=== PATIENT | male | born 1980 | race Caucasian/White ===

== ENCOUNTER 2021-02-19 15:34 | Inpatient (IN) | payer MEDICAID, OTHER ==
[~2021-02-19] VITALS: Ht 180.3 cm; Wt 121.1 kg
[2021-02-19 16:53] LABS: Basophils # (auto) 0.1 10 ^3/uL (0-0.2); Basophils % (auto) 0.7 % (0.0-2.0); Eosinophils # (auto) 0.2 10 ^3/uL (0-0.8); Eosinophils % (auto) 1.7 % (0.0-7.0); Hematocrit 35.7 % (41.0-53.0); Hemoglobin 12.1 g/dL (13.5-17.5); Lymphocytes # (auto) 1.2 10 ^3/uL (0.4-5.4); Lymphocytes % (auto) 9.3 % (10.0-50.0); Mean Corpuscular Hemoglobin 30.9 pg (28.0-32.0); Mean Corpuscular Hgb Conc. 33.7 g/dL (32.0-36.0); Mean Corpuscular Volume 91.6 fL (80.0-100.0); Monocytes # (auto) 0.8 10 ^3/uL (0-1.3); Monocytes % (auto) 6.4 % (0.0-12.0); Neutrophils # (auto) 10.8 10 ^3/uL (1.6-8.6); Neutrophils % (auto) 81.9 % (37.0-80.0); Red Cell Distribution Width 14.2 % (11.8-14.3); White Blood Cell 13.2 10^3/uL (4.4-10.8)
[2021-02-19] MEDS ORDERED: CLINDAMYCIN 600MG IV 50 ML IV ONE (17:15)
[2021-02-19] MEDS ORDERED: SODIUM CHLORIDE 0.9% 1,000 ML IV ONE ×2 (17:15)
[2021-02-19] MEDS ORDERED: cefTRIAXone 1GM/50ML D5W 50 ML IV ONE (17:15)
[2021-02-19 17:23] LABS: Urine Bacteria NONE SEEN /hpf (None Seen); Urine Blood Negative /uL (Negative); Urine Hyaline Cast FEW /lpf (0 - 2); Urine Specific Gravity 1.015 (1.001-1.035); Urine WBC 2 /hpf (0 - 3)
[2021-02-19 17:25] LABS: BUN/Creatinine Ratio 18.5; Calcium 8.3 mg/dL (8.5-10.1); Potassium 4.5 mmol/L (3.5-5.1)
[2021-02-19 17:38] LABS: Bilirubin, Total 0.5 mg/dL (0.2-1.0); Total Protein 7.4 g/dL (6.4-8.2)
[2021-02-19 17:45] LABS: Alcohol, Urine < 3.0 mg/dL (0-10); Amphetamine Screen, Urine NEGATIVE (NEGATIVE); Barbiturate Scree,Urine NEGATIVE (NEGATIVE); Benzodiazephine Screen, Urine NEGATIVE (NEGATIVE); Cannabinoid Screen, Urine NEGATIVE (NEGATIVE); Cocaine Screen, Urine NEGATIVE (NEGATIVE); Opiate Scree,Urine NEGATIVE (NEGATIVE); Phencyclidine Screen, Urine NEGATIVE (NEGATIVE)
[2021-02-19] MEDS ORDERED: HYDROcodone-ACET 10/325MG TAB PO ONE (18:45)
[2021-02-19] MEDS ORDERED: MORPHINE SULFATE INJECTION 2 MG/ML SYRG IV PRN (23:30)
[2021-02-19] MEDS ORDERED: DOCUSATE SOD 100 MG CAP PO PRN (23:30)
[2021-02-19] MEDS ORDERED: NITROGLYCERIN 0.4 MG SL TAB SL PRN (23:30)
[2021-02-19] MEDS ORDERED: VANCOMYCIN PER PHARMACY 0 MG IV SCH (23:30)
[2021-02-19] MEDS ORDERED: DEXTROSE (50%) 50ML SYRG IV PRN (23:30)
[2021-02-19] MEDS ORDERED: ACETAMINOPHEN 325 MG TAB PO PRN (23:30)
[2021-02-19] MEDS ORDERED: VANCOMYCIN 1GM/250ML 250 ML IV ONE (23:45)
[2021-02-20] MEDS: MORPHINE SULFATE 4 MG/ML SYR/VIAL IV PRN ×4 (00:08→17:59)
[2021-02-20 01:00] VITALS: BP 150/81
[2021-02-20] MEDS ORDERED: NIFE1TAB30 PO (02:16)
[2021-02-20] MEDS ORDERED: PROP40TA59 PO (02:16)
[2021-02-20] MEDS ORDERED: SIMV-8 PO (02:16)
[2021-02-20 04:58] VITALS: BP 150/81
[2021-02-20] MEDS: SODIUM CHLOR 0.9% PF (SALINE LOCK) 10ML VIAL/SYR IV SCH ×3 (06:27→22:18)
[2021-02-20 06:41] LABS: Basophils # (auto) 0.1 10 ^3/uL (0-0.2); Eosinophils # (auto) 0.3 10 ^3/uL (0-0.8); Hematocrit 33.9 % (41.0-53.0); Hemoglobin 11.7 g/dL (13.5-17.5); Lymphocytes # (auto) 1.4 10 ^3/uL (0.4-5.4); Lymphocytes % (auto) 15.7 % (10.0-50.0); Mean Corpuscular Hemoglobin 31.6 pg (28.0-32.0); Mean Corpuscular Hgb Conc. 34.7 g/dL (32.0-36.0); Mean Corpuscular Volume 91.1 fL (80.0-100.0); Monocytes # (auto) 0.8 10 ^3/uL (0-1.3); Monocytes % (auto) 8.9 % (0.0-12.0); Neutrophils # (auto) 6.3 10 ^3/uL (1.6-8.6); Neutrophils % (auto) 71.4 % (37.0-80.0); Red Blood Cells 3.72 10^6/uL (4.5-5.90); Red Cell Distribution Width 13.7 % (11.8-14.3); White Blood Cell 8.8 10^3/uL (4.4-10.8)
[2021-02-20 06:57] LABS: Potassium 4.3 mmol/L (3.5-5.1)
[2021-02-20] MEDS ORDERED: ACCU-CHEK COMFORT CURVE STRIP VI SCH (07:00)
[2021-02-20] MEDS ORDERED: InsuLIN REG 1unit/0.01ml Soln (100units/ml) SC SCH ×2 (07:00→22:00)
[2021-02-20 07:04] LABS: Albumin 2.6 g/dL (3.4-5.0); BUN/Creatinine Ratio 20.7; Bilirubin, Total 0.4 mg/dL (0.2-1.0); Total Protein 6.3 g/dL (6.4-8.2)
[2021-02-20] MEDS: ONDANSETRON HCL 4 MG/2 ML VIAL IV PRN ×2 (08:55→18:00)
[2021-02-20 09:00] VITALS: BP 140/75
[2021-02-20] MEDS: FAMOTIDINE 20 MG TAB PO SCH (09:06)
[2021-02-20] MEDS ORDERED: ASCORBIC ACID 500 MG TAB PO SCH (10:00)
[2021-02-20] MEDS ORDERED: ZINC SULFATE 220mg CAP or TAB PO SCH (10:00)
[2021-02-20] MEDS ORDERED: HEPARIN SODIUM (PORCINE) 5000 UNITS/ML 1ML VIAL SC SCH (10:00)
[2021-02-20] MEDS ORDERED: MULTIPLE VITAMIN TAB PO SCH (10:00)
[2021-02-20] MEDS: HYDROcodone-ACET 5/325MG TAB PO PRN ×2 (11:23→20:07)
[2021-02-20] MEDS ORDERED: HYDR25TA4 PO (11:47)
[2021-02-20 12:50] VITALS: BP 140/75
[2021-02-20 16:51] VITALS: BP 134/63
[2021-02-20] MEDS: VANCOMYCIN 1GM/250ML 250 ML IV SCH (17:59)
[2021-02-20 22:00] VITALS: BP 138/69
[2021-02-20 22:47] LABS: Urine Bacteria NONE SEEN /hpf (None Seen); Urine Blood Negative /uL (Negative); Urine Specific Gravity 1.011 (1.001-1.035); Urine WBC 5 /hpf (0 - 3)
[2021-02-20 23:05] LABS: Protein, Urine 83.5 mg/dL (0.0-11.9)
[2021-02-21] MEDS: ONDANSETRON HCL 4 MG/2 ML VIAL IV PRN ×3 (04:48→20:38)
[2021-02-21] MEDS: MORPHINE SULFATE 4 MG/ML SYR/VIAL IV PRN ×3 (04:48→20:37)
[2021-02-21 05:00] VITALS: BP 151/78
[2021-02-21] MEDS: SODIUM CHLOR 0.9% PF (SALINE LOCK) 10ML VIAL/SYR IV SCH ×3 (05:46→22:15)
[2021-02-21 06:01] LABS: Basophils # (auto) 0.1 10 ^3/uL (0-0.2); Basophils % (auto) 1.2 % (0.0-2.0); Eosinophils # (auto) 0.4 10 ^3/uL (0-0.8); Eosinophils % (auto) 4.9 % (0.0-7.0); Hematocrit 33.8 % (41.0-53.0); Hemoglobin 11.2 g/dL (13.5-17.5); Lymphocytes # (auto) 1.2 10 ^3/uL (0.4-5.4); Lymphocytes % (auto) 17.1 % (10.0-50.0); Mean Corpuscular Hemoglobin 30.9 pg (28.0-32.0); Mean Corpuscular Hgb Conc. 33.2 g/dL (32.0-36.0); Monocytes # (auto) 0.6 10 ^3/uL (0-1.3); Monocytes % (auto) 8.2 % (0.0-12.0); Neutrophils % (auto) 68.6 % (37.0-80.0); Red Blood Cells 3.64 10^6/uL (4.5-5.90); Red Cell Distribution Width 13.8 % (11.8-14.3); White Blood Cell 7.3 10^3/uL (4.4-10.8)
[2021-02-21 06:16] LABS: Calcium 8.2 mg/dL (8.5-10.1); Potassium 5.2 mmol/L (3.5-5.1)
[2021-02-21 06:19] LABS: BUN/Creatinine Ratio 20.5; Phosphorus 4.2 mg/dL (2.5-4.90); Uric Acid 9.9 mg/dL (3.5-7.2)
[2021-02-21 08:00] VITALS: BP 150/70
[2021-02-21 09:04] VITALS: BP 150/70
[2021-02-21] MEDS: FAMOTIDINE 20 MG TAB PO SCH (09:24)
[2021-02-21] MEDS: VANCOMYCIN 1GM/250ML 250 ML IV SCH (13:07)
[2021-02-21 15:01] VITALS: BP 158/71
[2021-02-21 17:00] VITALS: BP 154/72
[2021-02-21 22:00] VITALS: BP 156/60
[2021-02-21] MEDS: HYDROcodone-ACET 5/325MG TAB PO PRN (23:03)
[2021-02-21] MEDS: TEMAZEPAM 15 MG CAP PO PRN (23:47)
[2021-02-22 05:00] VITALS: BP 155/71
[2021-02-22] MEDS: VANCOMYCIN 1GM/250ML 250 ML IV SCH (06:47)
[2021-02-22] MEDS: SODIUM CHLOR 0.9% PF (SALINE LOCK) 10ML VIAL/SYR IV SCH ×3 (06:47→21:20)
[2021-02-22 07:03] LABS: BUN/Creatinine Ratio 18.5; Calcium 8.5 mg/dL (8.5-10.1)
[2021-02-22] MEDS: HYDROcodone-ACET 5/325MG TAB PO PRN ×3 (07:26→18:42)
[2021-02-22 08:00] VITALS: BP 149/73
[2021-02-22] MEDS: FAMOTIDINE 20 MG TAB PO SCH (09:29)
[2021-02-22] MEDS: MORPHINE SULFATE 4 MG/ML SYR/VIAL IV PRN ×2 (10:55→22:49)
[2021-02-22] MEDS: NIFEdipine ER 30 MG TAB PO SCH (11:51)
[2021-02-22 12:00] VITALS: BP 152/88
[2021-02-22 16:00] VITALS: BP 157/87
[2021-02-22 22:00] VITALS: BP 163/77
[2021-02-22] MEDS: TEMAZEPAM 15 MG CAP PO PRN (22:49)
[2021-02-23 05:00] VITALS: BP 158/79
[2021-02-23] MEDS: SODIUM CHLOR 0.9% PF (SALINE LOCK) 10ML VIAL/SYR IV SCH ×3 (05:50→20:31)
[2021-02-23] MEDS: MORPHINE SULFATE 4 MG/ML SYR/VIAL IV PRN ×3 (06:56→23:09)
[2021-02-23 07:14] LABS: Basophils # (auto) 0.1 10 ^3/uL (0-0.2); Basophils % (auto) 0.8 % (0.0-2.0); Eosinophils # (auto) 0.4 10 ^3/uL (0-0.8); Eosinophils % (auto) 5.6 % (0.0-7.0); Hematocrit 33.3 % (41.0-53.0); Hemoglobin 11.6 g/dL (13.5-17.5); Lymphocytes # (auto) 1.5 10 ^3/uL (0.4-5.4); Lymphocytes % (auto) 21.6 % (10.0-50.0); Mean Corpuscular Hemoglobin 31.6 pg (28.0-32.0); Mean Corpuscular Hgb Conc. 34.7 g/dL (32.0-36.0); Mean Corpuscular Volume 91.1 fL (80.0-100.0); Monocytes # (auto) 0.6 10 ^3/uL (0-1.3); Monocytes % (auto) 9.2 % (0.0-12.0); Neutrophils # (auto) 4.4 10 ^3/uL (1.6-8.6); Neutrophils % (auto) 62.8 % (37.0-80.0); Red Blood Cells 3.66 10^6/uL (4.5-5.90); Red Cell Distribution Width 13.2 % (11.8-14.3); White Blood Cell 7.1 10^3/uL (4.4-10.8)
[2021-02-23 07:28] LABS: Calcium 8.3 mg/dL (8.5-10.1)
[2021-02-23 07:30] LABS: BUN/Creatinine Ratio 20.3
[2021-02-23 07:33] LABS: Potassium 5.6 mmol/L (3.5-5.1)
[2021-02-23 08:00] VITALS: BP 155/77
[2021-02-23] MEDS ORDERED: SODIUM ZIRCONIUM CYCL 10 GM PAK PO ONE (09:15)
[2021-02-23] MEDS ORDERED: SODIUM BICARBONATE 8.4 % INJ 50ML VIAL IV ONE (09:15)
[2021-02-23] MEDS ORDERED: CALCIUM CHL 100MG/ML 1,000 MG in D5W 5% 100 ML IV ONE (09:15)
[2021-02-23] MEDS: NIFEdipine ER 30 MG TAB PO SCH (09:33)
[2021-02-23] MEDS: FAMOTIDINE 20 MG TAB PO SCH (09:33)
[2021-02-23] MEDS: cefTRIAXone 1GM/50ML D5W 50 ML IV SCH (09:33)
[2021-02-23] MEDS: DOXYCYCLINE 100MG/250ML 250 ML IV SCH ×2 (10:09→20:31)
[2021-02-23] MEDS ORDERED: VANCOMYCIN 500 MG in D5W 5% 100 ML IV SCH (12:00)
[2021-02-23] MEDS: ALLOPURINOL 100 MG TAB PO SCH (12:13)
[2021-02-23] MEDS: HCTZ 25 MG TAB PO SCH (13:49)
[2021-02-23] MEDS: DAKINS QUARTER STR 0.125% (NaHypochlorite) 473 ML TOPICAL SOL TOP SCH ×2 (13:49→20:32)
[2021-02-23 17:00] VITALS: BP 139/75
[2021-02-23] MEDS: HYDROcodone-ACET 5/325MG TAB PO PRN (18:11)
[2021-02-23 22:00] VITALS: BP 155/83
[2021-02-23] MEDS: TEMAZEPAM 15 MG CAP PO PRN (23:10)
[2021-02-24] MEDS: SODIUM CHLOR 0.9% PF (SALINE LOCK) 10ML VIAL/SYR IV SCH (04:58)
[2021-02-24 05:41] VITALS: BP 145/63
[2021-02-24 06:20] LABS: Basophils # (auto) 0.1 10 ^3/uL (0-0.2); Basophils % (auto) 1.3 % (0.0-2.0); Eosinophils # (auto) 0.5 10 ^3/uL (0-0.8); Eosinophils % (auto) 6.6 % (0.0-7.0); Hematocrit 35.9 % (41.0-53.0); Hemoglobin 12.3 g/dL (13.5-17.5); Lymphocytes # (auto) 1.7 10 ^3/uL (0.4-5.4); Lymphocytes % (auto) 24.8 % (10.0-50.0); Mean Corpuscular Hemoglobin 30.9 pg (28.0-32.0); Mean Corpuscular Hgb Conc. 34.1 g/dL (32.0-36.0); Mean Corpuscular Volume 90.6 fL (80.0-100.0); Monocytes # (auto) 0.7 10 ^3/uL (0-1.3); Monocytes % (auto) 9.6 % (0.0-12.0); Neutrophils # (auto) 3.9 10 ^3/uL (1.6-8.6); Neutrophils % (auto) 57.7 % (37.0-80.0); Nucleated Red Blood Cells % 0.1 %; Red Blood Cells 3.97 10^6/uL (4.5-5.90); Red Cell Distribution Width 13.6 % (11.8-14.3); White Blood Cell 6.8 10^3/uL (4.4-10.8)
[2021-02-24 06:41] LABS: BUN/Creatinine Ratio 21.4; Calcium 8.6 mg/dL (8.5-10.1); Potassium 5.1 mmol/L (3.5-5.1)
[2021-02-24 08:00] VITALS: BP 148/79
[2021-02-24 08:49] VITALS: BP 148/79
[2021-02-24] MEDS: cefTRIAXone 1GM/50ML D5W 50 ML IV SCH (09:15)
[2021-02-24] MEDS: HYDROcodone-ACET 5/325MG TAB PO PRN (09:25)
[2021-02-24] MEDS: DOXYCYCLINE 100MG/250ML 250 ML IV SCH (09:50)
[2021-02-24] MEDS: NIFEdipine ER 30 MG TAB PO SCH (09:51)
[2021-02-24] MEDS: FAMOTIDINE 20 MG TAB PO SCH (09:51)
[2021-02-24] MEDS: ALLOPURINOL 100 MG TAB PO SCH (09:51)
[2021-02-24] MEDS: HCTZ 25 MG TAB PO SCH (09:51)
[2021-02-24] MEDS: DAKINS QUARTER STR 0.125% (NaHypochlorite) 473 ML TOPICAL SOL TOP SCH (10:52)
[2021-02-24 11:28] VITALS: BP 148/79
[2021-02-24 12:58] VITALS: BP 160/81
== END 2021-02-24 12:40 | disposition home or self-care (01) | DRG 361 ==
LOC: ER 15:34 → CENTRAL 23:33
PROVIDERS: ADMIT Nurse Practitioner Family; ATTEND Family Medicine
PROC: 0HBNXZZ Excision of Left Foot Skin, External Approach (ICD-10-PCS; principal; 2021-02-22)
DX: L03.116 Cellulitis of left lower limb (principal); N17.9 Acute kidney failure, unspecified; N18.30 Chronic kidney disease, stage 3 unspecified; Z20.822 Contact with and (suspected) exposure to COVID-19; I12.9 Hypertensive chronic kidney disease with stage 1 through stage 4 chronic kidney disease, or unspecified chronic kidney disease; E66.3 Overweight; E44.1 Mild protein-calorie malnutrition; Z68.37 Body mass index [BMI] 37.0-37.9, adult; Z88.6 Allergy status to analgesic agent; Z83.3 Family history of diabetes mellitus; Z82.49 Family history of ischemic heart disease and other diseases of the circulatory system; Z98.84 Bariatric surgery status; Z79.899 Other long term (current) drug therapy
CPT/HCPCS: 36415; 71046; 73700; 76775; 80048; 80053; 80202; 80307; 81001; 82565; 82570; 82962; 83036; 83605; 83880; 84100; 84156; 84300; 84550; 85025; 87040; 87205; 87426; 93971; 96361; 96365; 96368; 96375; G0378; J0696; J2405; J3490; J7060